=== PATIENT | male | born 1965 | race African-American/Black ===

== ENCOUNTER 2022-12-27 23:40 | Emergency (ER) | payer SELFPAY ==
[~2022-12-27] VITALS: Ht 167.6 cm; Wt 81.6 kg
[2022-12-27 23:40] VITALS: BP_SYST 137
--- NOTE | 2022-12-27 23:50 | NUR ---
Back from CT at this time. Placed on monitor.
--- NOTE | 2022-12-27 23:52 | NUR ---
EMS stated patient was with friends and passed out and Alcohol consumption occurred per triage nurse.
--- NOTE | 2022-12-28 00:03 | NUR ---
Tele neuro doctor present on monitor. Pt not responding to obnoxious stimuli. Pt receiving in and out cath and still not moving; however, vital signs wnl.
[2022-12-28 00:21] LABS: BASOPHILS % (AUTO) 0.3 % (0.0-2.0); HEMATOCRIT 45.4 % (36-54); HEMOGLOBIN 15.2 g/dL (14.0-18.0); LYMPHOCYTES # (AUTO) 0.8 K/uL (1.0-5.5); LYMPHOCYTES % (AUTO) 8.4 % (20.5-51.5); MEAN CORPUSCULAR HEMOGLOBIN 28 pg (27-31); MEAN CORPUSCULAR HGB CONC 33 % (32-36); MEAN CORPUSCULAR VOLUME 85 fL (79.0-98.0); MONOCYTES # (AUTO) 0.6 K/uL (0.0-1.0); MONOCYTES % (AUTO) 6.5 % (1.7-9.3); NEUTROPHILS # (AUTO) 8.4 K/uL (1.8-7.7); NEUTROPHILS % (AUTO) 84.8 % (40.0-70.0); PLATELET COUNT (AUTO) 236 K/uL (130-430); RED BLOOD CELL COUNT(AUTO) 5.34 MIL/uL (4.2-6.2); RED CELL DISTRIBUTION WIDTH 14.5 % (9.0-15.0)
[2022-12-28 00:24] LABS: BILIRUBIN,URINE NEGATIVE (NEGATIVE); CLARITY/URINE CLEAR (CLEAR); COLOR,URINE YELLOW (YELLOW); GLUCOSE,URINE NEGATIVE (NEGATIVE); KETONES,URINE NEGATIVE (NEGATIVE); LEUKOCYTE ESTERASE ,URINE NEGATIVE (NEGATIVE); NITRITE, URINE NEGATIVE (NEGATIVE); PROTEIN URINE TRACE (NEGATIVE); UROBILINOGEN,URINE 0.2 (0.2-1.0)
[2022-12-28 00:37] LABS: ANION GAP 12 (5-15); CALCIUM 8.7 mg/dL (8.4-11.0); CHLORIDE 106 mmol/L (98-107); CREATININE 1.48 mg/dL (0.55-1.30); GLUCOSE 108 mg/dL (70-99); UREA NITROGEN, BLOOD 19 mg/dL (8-21)
[2022-12-28 00:40] LABS: INR 1.2 (0.80-1.20); PROTHROMBIN TIME 12.4 SECS (9.5-12.5)
[2022-12-28 00:41] LABS: BLOOD, URINE TRACE (NEGATIVE)
[2022-12-28 00:43] LABS: BARBITURATE, URINE NEGATIVE (NEG <=200); BENZODIAZEPINE, URINE NEGATIVE (NEG <=150); CANNABINOID, URINE NEGATIVE (NEG <=50); COCAINE, URINE NEGATIVE (NEG <=150); METHAMPHETAMINES SCREEN,URINE NEGATIVE (NEG <=500); OPIATE, URINE NEGATIVE (NEG <=100); PHENCYCLIDINE SCREEN,URINE NEGATIVE (NEG <=25); UR TRICYCLIC ANTIDEPRESSANTS NEGATIVE (NEG <=300); URINE AMPHETAMINE NEGATIVE (NEG <=500); URINE METHADONE NEGATIVE (NEG <=200); URINE OXYCODONE SCREEN NEGATIVE (NEG <=100); URINE PROPOXYPHENE SCREEN NEGATIVE (NEG <=300)
[2022-12-28 00:44] LABS: ALANINE AMINOTRANSFERASE 10 U/L (12-78); ALBUMIN 3.7 g/dL (3.4-4.8); ALCOHOL, BLOOD 350 mg/dL (<10); ASPARTATE AMINOTRANSFERASE 13 U/L (10-37); TOTAL BILIRUBIN 0.2 mg/dL (0.0-1.0)
[2022-12-28 00:46] LABS: GFR AFRICAN AMERICAN 63 mL/min (>90)
[2022-12-28 00:52] LABS: URINE SULFO SALICYLIC ACID NEGATIVE (NEGATIVE)
[2022-12-28 00:53] LABS: BACTERIA,URINE FEW /HPF (None Seen); WBC,URINE 0-3 /HPF (0-3)
[2022-12-28 00:54] LABS: MUCUS,URINE None Seen /LPF (None Seen)
[2022-12-28] MEDS ORDERED: ASPIRIN 300 MG/SUPP.RECT SUPP RC ONE ×2 (01:15→01:20)
[2022-12-28 01:24] LABS: WBC,URINE 0-3 /HPF (0-3)
[2022-12-28 01:25] LABS: BACTERIA,URINE FEW /HPF (None Seen); MUCUS,URINE None Seen /LPF (None Seen)
--- NOTE | 2022-12-28 03:00 | NUR ---
Report given to JASMYN Avelar. [facility].
[2022-12-28 03:08] VITALS: BP_SYST 131
--- NOTE | 2022-12-28 03:12 | NUR ---
Patient to be transferred to [facility]. Is being transferred due to higher level of care. Receiving facility has accepting physician (Dr. tamiko Mann) and available space. ER physician has signed transfer form. Patient unable to sign transfer form.(ER doctor and nurse signed form) Patient belongings inventoried and will be sent with patient. Copy of nursing notes, lab reports, EKG, Physicians Orders and X-rays to be sent with patient. Report called to JASMYN Avelar at receiving facility. Receiving physician is Yvonne Mann. ambulance service has been called for transfer. .
== END 2022-12-28 03:09 | disposition short-term general hospital (02) ==
LOC: SED 23:40 → EDBD 23:40 → SED 12-28 03:09
DX: I77.71 Dissection of carotid artery (principal); F10.129 Alcohol abuse with intoxication, unspecified; R74.8 Abnormal levels of other serum enzymes; R55 Syncope and collapse; Z79.899 Other long term (current) drug therapy; Y90.6 Blood alcohol level of 120-199 mg/100 ml
CPT/HCPCS: 99291; 70496; 71045; 80307; 80053; 85025; 85610; 85730; 86886; 86900; 86901; 84484; 36415; 70498; 70450; 81000; 80048; 76376; G0482